=== PATIENT | male | born 1995 | race Caucasian/White ===

== ENCOUNTER 2020-01-06 15:34 | Outpatient (CLI) | payer BC ==
--- NOTE | 2020-01-06 16:09 | RAD ---
Left foot 3 views HISTORY: Toe pain. FINDINGS: Joint spaces are preserved. Lisfranc joint alignment is anatomic. Plantar arch is maintaine d. No acute fracture, dislocation, or aggressive osseous erosions. IMPRESSION : No abnormalities are demonstrated.
== END 2020-01-06 15:35 | disposition home or self-care (01) ==
LOC: SCSRAD 15:34
PROVIDERS: ATTEND Nurse Practitioner Family
DX: M79.675 Pain in left toe(s) (principal)
CPT/HCPCS: 84550; 85025